=== PATIENT | male | born 1990 | race Caucasian/White ===

== ENCOUNTER 2023-05-22 12:19 | Inpatient (IN) | payer SELFPAY ==
[~2023-05-22] VITALS: Ht 170.2 cm; Wt 81.6 kg
[2023-05-22 12:20] VITALS: BP 170/105; PULSE 112; RESP 16; TEMP 98.1; O2SAT 97
[2023-05-22] MEDS ORDERED: MORPHINE SULFATE 4 MG/ML SYR IVP ONE (12:50)
[2023-05-22] MEDS ORDERED: NACL 0.9% 1,000 ML IV ONE (12:50)
[2023-05-22 13:21] LABS: BASOPHILS % (AUTO) 0.4 % (0.0-2.0); EOSINOPHILS % (AUTO) 0.7 % (0.0-4.0); HEMOGLOBIN 16.1 g/dL (12.0-18.0); LYMPHOCYTES # (AUTO) 1.8 K/uL (2.0-11.5); LYMPHOCYTES % (AUTO) 24.1 % (20.5-51.1); MEAN CORPUSCULAR HEMOGLOBIN 28 pg (27-31); MEAN CORPUSCULAR HGB CONC 35 g/dL (33-37); MEAN CORPUSCULAR VOLUME 80.1 fL (80-94); MONOCYTES # (AUTO) 0.4 K/uL (0.8-1.0); MONOCYTES % (AUTO) 5.1 % (1.7-9.3); NEUTROPHILS # (AUTO) 5.1 K/uL (1.8-7.7); NEUTROPHILS % (AUTO) 69.7 % (42.2-75.2); PLATELET COUNT (AUTO) 268 K/uL (140-450); RED BLOOD CELL COUNT(AUTO) 5.74 MIL/uL (4.20-6.10); RED CELL DISTRIBUTION WIDTH 13.8 % (11.6-13.7); WHITE BLOOD COUNT (AUTO) 7.4 K/uL (4.8-10.8)
[2023-05-22 13:30] LABS: ANION GAP 13.7 (8-16); CALCIUM 8.8 mg/dL (8.5-10.1); CARBON DIOXIDE 26.7 mmol/L (21-32); CREATININE 0.9 mg/dL (0.6-1.3); POTASSIUM 4.4 mmol/L (3.5-5.1)
[2023-05-22] MEDS ORDERED: LIDOCAINE MPF 1% 10 MG/ML VIAL INJ ONE (14:00)
[2023-05-22 17:35] VITALS: BP 143/96; PULSE 105; RESP 18; TEMP 97.2; O2SAT 96
[2023-05-22] MEDS ORDERED: ACETAMINOPHEN 325 MG TAB PO PRN (18:30)
[2023-05-22] MEDS ORDERED: ONDANSETRON 4 MG/2 ML VIAL IVP PRN (18:30)
[2023-05-22] MEDS ORDERED: LORazepam 2 MG/ML VIAL IVP PRN (18:30)
[2023-05-22 20:00] VITALS: BP 142/90; PULSE 74; RESP 18; TEMP 98.6; O2SAT 96
[2023-05-22] MEDS: HYDROcodone/APAP 5/325 MG 1 TAB TAB PO PRN (20:52)
[2023-05-22] MEDS ORDERED: HYDROcodone/APAP 10/325 MG 1 TAB TAB PO PRN (21:35)
[2023-05-23 04:00] VITALS: BP 133/97; PULSE 68; RESP 18; TEMP 96.7; O2SAT 98
[2023-05-23 07:22] LABS: ANION GAP 11.2 (8-16); CALCIUM 8.5 mg/dL (8.5-10.1); CARBON DIOXIDE 26.7 mmol/L (21-32); CREATININE 0.9 mg/dL (0.6-1.3); POTASSIUM 3.9 mmol/L (3.5-5.1)
[2023-05-23 08:00] VITALS: BP 132/88; PULSE 72; RESP 18; TEMP 97; O2SAT 97; O2SAT 98
[2023-05-23 08:54] LABS: BASOPHILS % (AUTO) 0.4 % (0.0-2.0); EOSINOPHILS # (AUTO) 0.1 K/uL (0-0.4); EOSINOPHILS % (AUTO) 1.1 % (0.0-4.0); HEMATOCRIT 42.9 % (36-52); HEMOGLOBIN 14.8 g/dL (12.0-18.0); LYMPHOCYTES % (AUTO) 25.7 % (20.5-51.1); MEAN CORPUSCULAR HEMOGLOBIN 28 pg (27-31); MEAN CORPUSCULAR HGB CONC 35 g/dL (33-37); MEAN CORPUSCULAR VOLUME 80.7 fL (80-94); MONOCYTES # (AUTO) 0.7 K/uL (0.8-1.0); MONOCYTES % (AUTO) 8.3 % (1.7-9.3); NEUTROPHILS # (AUTO) 5.1 K/uL (1.8-7.7); NEUTROPHILS % (AUTO) 64.5 % (42.2-75.2); PLATELET COUNT (AUTO) 234 K/uL (140-450); RED BLOOD CELL COUNT(AUTO) 5.32 MIL/uL (4.20-6.10); RED CELL DISTRIBUTION WIDTH 13.7 % (11.6-13.7); WHITE BLOOD COUNT (AUTO) 7.9 K/uL (4.8-10.8)
[2023-05-23] MEDS ORDERED: BUPIVACAINE-MPF 0.5% 10 ML VIAL INJ ONE (09:25)
[2023-05-23] MEDS ORDERED: LIDOCAINE/EPI MPF 1%1:200000 30 ML VIAL INJ ONE (09:25)
[2023-05-23] MEDS ORDERED: BUPIVACAINE MPF 0.25% 10 ML VIAL INJ ONE (09:26)
[2023-05-23] MEDS ORDERED: ceFAZolin 2,000 MG VIAL ONE (10:02)
[2023-05-23] MEDS ORDERED: SUCCINYLCHOLINE CHLORIDE 200 MG/10 ML VIAL IV ONE (10:02)
[2023-05-23] MEDS ORDERED: DESFLURANE 240 ML BTL INH ONE (10:02)
[2023-05-23] MEDS ORDERED: ROCURONIUM 50 MG/5 ML VIAL IV ONE (10:02)
[2023-05-23] MEDS ORDERED: MIDAZOLAM 2 MG/2 ML VIAL ONE (10:05)
[2023-05-23] MEDS ORDERED: fentaNYL citrate 0.05 MG/ML VIAL ONE (10:06)
[2023-05-23] MEDS ORDERED: DEXAMETHASONE 4 MG/ML VIAL ONE (10:08)
[2023-05-23] MEDS ORDERED: ONDANSETRON 4 MG/2 ML VIAL ONE (10:08)
[2023-05-23] MEDS ORDERED: PROPOFOL 200 MG/20 ML VIAL IV ONE (10:08)
[2023-05-23] MEDS ORDERED: ceFAZolin 1,000 MG VIAL ONE ×2 (10:14)
[2023-05-23] MEDS ORDERED: CEPH-588 PO (10:14)
[2023-05-23] MEDS ORDERED: [UNRECOGNIZED DRUG - CODE] PO (10:14)
[2023-05-23] MEDS ORDERED: SUGAMMADEX SODIUM 200 MG/2 ML VIAL IV ONE (11:19)
[2023-05-23 12:30] VITALS: BP 140/88; PULSE 87; RESP 18; TEMP 98.6; O2SAT 97
[2023-05-23] MEDS: HYDROcodone/APAP 5/325 MG 1 TAB TAB PO PRN (13:19)
== END 2023-05-23 14:25 | disposition home or self-care (01) | DRG 506 ==
LOC: MED 12:19 → MMU 14:46 → MTU 16:42
PROVIDERS: ADMIT Preventive Medicine Preventive Medicine/Occupational Environmental Medicine; ATTEND Preventive Medicine Preventive Medicine/Occupational Environmental Medicine
PROC: 0HQFXZZ Repair Right Hand Skin, External Approach (ICD-10-PCS; 2023-05-22)
PROC: 0RQU0ZZ Repair Right Metacarpophalangeal Joint, Open Approach (ICD-10-PCS; 2023-05-23)
PROC: 0JBJ0ZZ Excision of Right Hand Subcutaneous Tissue and Fascia, Open Approach (ICD-10-PCS; principal; 2023-05-23 09:30)
DX: S66.921A Laceration of unspecified muscle, fascia and tendon at wrist and hand level, right hand, initial encounter (principal); I10 Essential (primary) hypertension; X58.XXXA Exposure to other specified factors, initial encounter; Z88.7 Allergy status to serum and vaccine; Z79.899 Other long term (current) drug therapy; Y93.89 Activity, other specified; Y92.89 Other specified places as the place of occurrence of the external cause; Y99.8 Other external cause status
CPT/HCPCS: 36415; 73130; 80048; 85025; 87081; 96374; 99285; J0330; J0690; J1100; J2001; J2250; J2270; J2405; J2704; J3010; J3490